=== PATIENT | female | born 1965 ===

== ENCOUNTER 2019-06-07 07:40 | Day surgery (SDC) | payer OTHER | END 2019-06-07 13:00 | disposition home or self-care (01) | LOC: AMB-ENDOS 07:40 | DX: K92.1 Melena (principal); K64.1 Second degree hemorrhoids; Z12.11 Encounter for screening for malignant neoplasm of colon ==

== ENCOUNTER 2020-06-09 13:18 | Outpatient (CLI) | payer OTHER | END 2020-06-09 13:21 | disposition home or self-care (01) | LOC: MRI 13:18 | DX: M72.2 Plantar fascial fibromatosis (principal); S83.011A Lateral subluxation of right patella, initial encounter | CPT/HCPCS: 73718 ==